=== PATIENT | male | born 1995 | race Caucasian/White ===

== ENCOUNTER 2016-11-12 12:47 | Emergency (ER) | payer SELFPAY ==
--- NOTE | 2016-11-12 13:08 | PD ---
HPI Chief Complaint: Musculoskeletal Complaint Time Seen by Provider: 13:00 Travel History International Travel<30 days: No Contact w/Intl Traveler<30days: No History of Present Illness HPI This is a 21-year-old male who presents to the emergency department having been playing basketball when the ball hit his hand wrong way and his right fifth digit got pushed out. He has moderate severity pain in the right fifth digit, constant, worse with movement, improved with rest. He denies any other injuries. PFSH Past Medical History Medical History: Denies Significant Hx Social History Alcohol Use: No Tobacco Use: No Substance Use: No Allergies-Medications (Allergen,Severity, Reaction): Coded Allergies: Penicillins (Verified Allergy, Unknown, 11/12/16) Review of Systems General / Constitutional: No: Fever, Chills Cardiovascular: No: Chest Pain or Discomfort Respiratory: No: Shortness of Breath Physical Exam Narrative GENERAL: Well-appearing, no acute distress, nontoxic SKIN: Ecchymoses and swelling over the fifth DIP HEAD: Atraumatic. Normocephalic. ENT: No nasal bleeding or discharge. Moist mucous membranes MUSCULOSKELETAL: Tender to palpation over the fifth middle and distal phalanx with pain with flexion at the fifth DIP joint and gross deformity with ulnar deviation of the fifth distal phalanx off of the joint Vascular: Normal capillary refill of the fifth digit on the right hand NEUROLOGICAL: Awake and alert. No obvious cranial nerve deficits. Motor grossly within normal limits. Normal speech. PSYCHIATRIC: Appropriate mood and affect; insight and judgment normal. Data Data Last Documented VS Vital Signs Date Time Temp Pulse Resp B/P (MAP) Pulse Ox O2 Delivery O2 Flow Rate FiO2 11/12/16 14:07 97.8 52 16 144/86 (105) 99 Room Air Orders Orders Finger ([id number]) (11/12/16 ) Tramadol (Ultram) (11/12/16 14:15) MDM Medical Decision Making Medical Screen Exam Complete: Yes Emergency Medical Condition: Yes Interpretation(s) Last 24 hours Impressions Finger X-Ray 11/12/16 0000 Signed Impressions: Service Date/Time: Saturday, November 12, 2016 13:52 - CONCLUSION: 1. Oblique fracture through the proximal phalanx of the fifth digit. Isaac Vides MD Differential Diagnosis Phalanx fracture, PIP dislocation, DIP dislocation, contusion Narrative Course This is a 21-year-old male who presents to the emergency department having injured his finger while playing basketball. X-ray demonstrates oblique fracture through the proximal phalanx of the right fifth digit. Finger was slightly reduced manually with traction and splinted. Patient will be referred to hand. Diagnosis Primary Impression: Fracture of phalanx of finger of right hand Qualified Codes: S62.646A - Nondisplaced fracture of proximal phalanx of right little finger, initial encounter for closed fracture Referrals: Olivia Ramírez MD Patient Instructions: General Instructions Med/Other Pt SpecificInfo: Prescription(s) given Scripts Tramadol (Tramadol) 50 Mg Tab 50 MG PO Q6H Y for PAIN, #10 TAB 0 Refills Prov: Zuleyka Fung MD 11/12/16 Disposition: 01 DISCHARGE HOME Condition: Stable Zuleyka Fung MD Nov 12, 2016 13:08
[2016-11-12 14:07] VITALS: BP 144/86; PULSE 52; RESP 16; TEMP 97.8; O2SAT 99
--- NOTE | 2016-11-12 14:11 | RADRPT ---
EXAM DATE/TIME: 11/12/2016 13:52 [facility] COMPARISON: No previous studies available for comparison. INDICATIONS : Right hand, 5th digit pain after hurting it playing basketball. MEDICAL HISTORY : None. SURGICAL HISTORY : None. ENCOUNTER: Initial ACUITY: 4 - 6 days PAIN SCORE: 4/10 LOCATION: Right 5th digit. FINDINGS: The examination demonstrates a moderately displaced and angulated fractures of the proximal phalanx o f the fifth digit. The remainder of the osseous structures are intact. CONCLUSION: 1. Oblique fracture through the proximal phalanx of the fifth digit. Isaac Vides MD on November 12, 2016 at 14:08 Board Certified Radiologist. This report was verified electronically.
[2016-11-12] MEDS ORDERED: traMADol HCL 50 MG TAB PO ONE (14:15)
[2016-11-12] MEDS ORDERED: NAPR500T PO (14:25)
[2016-11-12] MEDS ORDERED: TRAM50TA PO (14:25)
== END 2016-11-12 15:10 | disposition home or self-care (01) ==
LOC: NEPD 12:47
DX: S62.646A Nondisplaced fracture of proximal phalanx of right little finger, initial encounter for closed fracture (principal); W21.05XA Struck by basketball, initial encounter; Y93.67 Activity, basketball; Y92.39 Other specified sports and athletic area as the place of occurrence of the external cause
CPT/HCPCS: 29125; 73140